=== PATIENT | female | born 1960 | race Caucasian/White ===

== ENCOUNTER 2017-08-09 22:16 | Emergency (ER) | payer OTHER ==
[~2017-08-09] VITALS: Ht 157.5 cm; Wt 46.3 kg
[~2017-08-09 22:16] MED LIST: HYDR-3533 PO
[2017-08-09 22:36] VITALS: BP 154/78; PULSE 68; RESP 18; TEMP 97.3; O2SAT 99
[2017-08-09] MEDS ORDERED: CINN500C2 PO (22:56)
[2017-08-09] MEDS ORDERED: VITA100018 PO (22:56)
[2017-08-09] MEDS ORDERED: FISHCAP4 PO (22:56)
[2017-08-09] MEDS ORDERED: ASCO500C PO (22:56)
[2017-08-09] MEDS ORDERED: LIDOCAINE HCL 1% PF 10 ML VIAL INFIL ONE (23:15)
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
[2017-08-10 00:23] VITALS: BP 120/73; PULSE 85; RESP 18; O2SAT 100
--- NOTE | 2017-08-10 00:41 | RADRPT ---
EXAM DATE/TIME: 08/10/2017 00:04 [facility] COMPARISON: No previous studies available for comparison. INDICATIONS : Fall. Right facial injury and headache. RADIATION DOSE: 57.28 CTDIvol (mGy) MEDICAL HISTORY : None SURGICAL HISTORY : None. ENCOUNTER: Initial ACUITY: 1 day PAIN SCALE: 5/10 LOCATION: cranial TECHNIQUE: Multiple contiguous axial images were obtained of the head. Using automated exposure control and adj ustment of the mA and/or kV according to patient size, radiation dose was kept as low as reasonably a chievable to obtain optimal diagnostic quality images. DICOM format image data is available electro nically for review and comparison. FINDINGS: CEREBRUM: The ventricles are normal for age. No evidence of midline shift, mass lesion, hemorrhage or acute in farction. No extra-axial fluid collections are seen. POSTERIOR FOSSA: The cerebellum and brainstem are intact. The 4th ventricle is midline. The cerebellopontine angle i s unremarkable. EXTRACRANIAL: The visualized portion of the orbits is intact. SKULL: The calvaria is intact. No evidence of skull fracture. CONCLUSION: No acute intracranial findings. Andry Renae MD on August 10, 2017 at 0:38 Board Certified Radiologist. This report was verified electronically.
--- NOTE | 2017-08-10 00:44 | RADRPT ---
EXAM DATE/TIME: 08/10/2017 00:04 [facility] COMPARISON: No previous studies available for comparison. INDICATIONS : Fall. Right facial laceration. RADIATION DOSE: 25.66 CTDIvol (mGy) MEDICAL HISTORY : None SURGICAL HISTORY : None. ENCOUNTER: Initial ACUITY: 1 day PAIN SCORE: 6/10 LOCATION: Right facial TECHNIQUE: Volumetric scanning of the facial bones was performed. Using automated exposure control and adjustme nt of the mA and/or kV according to patient size, radiation dose was kept as low as reasonably achiev able to obtain optimal diagnostic quality images. DICOM format image data is available electronicall y for review and comparison. FINDINGS: Right-sided superficial soft tissue contusion is seen lateral to the right orbit. No evidence of fracture. Orbits intact. Globes are round and symmetric. Paranasal sinuses are clear. Mandible intact. CONCLUSION: Superficial soft tissue contusion lateral to the right orbit. No evidence of fracture. Andry Renae MD on August 10, 2017 at 0:39 Board Certified Radiologist. This report was verified electronically.
== END 2017-08-10 01:05 | disposition home or self-care (01) ==
LOC: PHED 22:16
DX: S01.511A Laceration without foreign body of lip, initial encounter (principal); S05.11XA Contusion of eyeball and orbital tissues, right eye, initial encounter; S09.90XA Unspecified injury of head, initial encounter; W01.190A Fall on same level from slipping, tripping and stumbling with subsequent striking against furniture, initial encounter; Z87.891 Personal history of nicotine dependence; Z79.899 Other long term (current) drug therapy
CPT/HCPCS: 12051; 70450; 70486